=== PATIENT | female | born 1975 | race Caucasian/White ===

== ENCOUNTER 2016-11-21 19:30 | Emergency (ER) | payer OTHER ==
[~2016-11-21] VITALS: Ht 157.5 cm; Wt 79.4 kg
[~2016-11-21 19:30] MED LIST: AMOX TR-K CLV1 EAC1 PO; BACTRIM DS TAB1 EACH PO; BUSPIRONE HCL10 MG PO; BUSPIRONE HCL5 MG PO; CLONIDINE HCL0.1 MG; CORTISPORIN EAR10 ML AD; EFFEXOR XR150 MG PO; HYDROXYZINE PAM50 MG PO; LAMICTAL100 MG PO; LAMOTRIGINE200 MG PO; LEVAQUIN500 MG PO; LORAZEPAM1 MG PO; MECLIZINE HCL25 MG PO; METFORMIN HCL500 MG PO; METRONIDAZOLE500 MG PO; MUPIROCIN22 GM TOP; OXYCODONE HCL5 MG PO; PROVERA10 MG PO; ULTRAM50 MG PO; VENLAFAXINE HC225 MG PO; VICOPROFEN 2001 EACH PO; VISTARIL25 MG PO; ZOFRAN4 MG PO; ZOLPIDEM TARTRAT5 MG PO
[2016-11-21] MEDS ORDERED: AMITRIPTYLINE H25 MG PO (19:44)
[2016-11-21] MEDS ORDERED: ZOFRAN ODT4 MG PO (21:12)
[2016-11-21] MEDS ORDERED: TRAMADOL HCL50 MG PO (21:12)
== END 2016-11-21 21:45 | disposition home or self-care (01) ==
LOC: ED 19:30
DX: K52.9 Noninfective gastroenteritis and colitis, unspecified (principal); R10.2 Pelvic and perineal pain; G89.29 Other chronic pain; E11.9 Type 2 diabetes mellitus without complications; F32.9 Major depressive disorder, single episode, unspecified; F17.200 Nicotine dependence, unspecified, uncomplicated; Z88.8 Allergy status to other drugs, medicaments and biological substances; Z98.51 Tubal ligation status; Z79.84 Long term (current) use of oral hypoglycemic drugs
CPT/HCPCS: 80053; 81001; 83690; 84703; 85025; 96361; 96374; 96375; 99283; J1885; J2405; J7030

== ENCOUNTER 2017-02-21 11:58 | Emergency (ER) | payer OTHER ==
[~2017-02-21] VITALS: Ht 157.5 cm; Wt 77.1 kg
[~2017-02-21 11:58] MED LIST changes: +AMITRIPTYLINE H25 MG PO; +TRAMADOL HCL50 MG PO; +ZOFRAN ODT4 MG PO
[2017-02-21] MEDS ORDERED: NORCO 5-325 TA1 EACH PO (20:15)
== END 2017-02-21 21:19 | disposition home or self-care (01) ==
LOC: ED 11:58
DX: K59.00 Constipation, unspecified (principal); F32.9 Major depressive disorder, single episode, unspecified; F17.200 Nicotine dependence, unspecified, uncomplicated; Z98.51 Tubal ligation status; Z87.01 Personal history of pneumonia (recurrent); Z79.899 Other long term (current) drug therapy; Z79.84 Long term (current) use of oral hypoglycemic drugs
CPT/HCPCS: 74177; 76705; 80053; 81001; 83690; 85025; 96374; 96375; 96376; 99284; J1170; J2405; J2550; Q9967

== ENCOUNTER 2017-10-14 21:58 | Emergency (ER) | payer OTHER ==
[~2017-10-14] VITALS: Ht 157.5 cm; Wt 77.1 kg
[~2017-10-14 21:58] MED LIST changes: +CLONIDINE HCL0.1 MG PO; +HYDROXYZINE HCL25 MG PO; +NORCO 5-325 TA1 EACH PO
[2017-10-14] MEDS ORDERED: HYDROXYZINE HCL50 MG (22:27)
[2017-10-14] MEDS ORDERED: RITALIN10 MG PO (22:29)
[2017-10-14] MEDS ORDERED: LUNESTA2 MG (22:29)
== END 2017-10-15 00:19 | disposition home or self-care (01) ==
LOC: ED 21:58
DX: R21 Rash and other nonspecific skin eruption (principal); R50.9 Fever, unspecified; E11.9 Type 2 diabetes mellitus without complications; F32.9 Major depressive disorder, single episode, unspecified; F17.200 Nicotine dependence, unspecified, uncomplicated; Z87.01 Personal history of pneumonia (recurrent); Z79.899 Other long term (current) drug therapy; Z79.4 Long term (current) use of insulin
CPT/HCPCS: 80053; 81001; 85025; 99283

== ENCOUNTER 2017-11-27 13:37 | Emergency (ER) | payer OTHER ==
[~2017-11-27] VITALS: Ht 157.5 cm; Wt 77.1 kg
[~2017-11-27 13:37] MED LIST changes: +HYDROXYZINE HCL50 MG; +LUNESTA2 MG; +RITALIN10 MG PO
[2017-11-27] MEDS ORDERED: REGLAN10 MG PO (16:34)
--- NOTE | 2017-11-27 22:12 | EKG ---
[facility] [address] [facility] [place] [address] Signed Normal sinus rhythm Left posterior fascicular block Cannot rule out Inferior infarct (cited on or before 27-NOV-2017) Abnormal ECG When compared with ECG of 27-NOV-2017 13:46, (Unconfirmed) No significant change was found Confirmed by RASHARD DUNN MD ([id number]) on 11/27/2017 10:12:08 PM Electronically Signed By: RASHARD DUNN MD 11/27/17 2212 PATIENT NAME: TERRA PERALTA Electrocardiogram DATE OF : 71 PHYSICIAN: RASHARD DUNN MD REPORT #: [id number] REPORT IS CONFIDENTIAL AND NOT TO BE RELEASED WITHOUT AUTHORIZATION
== END 2017-11-27 16:42 | disposition home or self-care (01) ==
LOC: ED 13:37
DX: R07.89 Other chest pain (principal); R51 Headache; E11.9 Type 2 diabetes mellitus without complications; F17.200 Nicotine dependence, unspecified, uncomplicated; Z88.6 Allergy status to analgesic agent; Z79.899 Other long term (current) drug therapy; Z79.84 Long term (current) use of oral hypoglycemic drugs
CPT/HCPCS: 71046; 80053; 84484; 85025; 93005; 93010; 99285

== ENCOUNTER 2018-08-14 16:59 | Emergency (ER) | payer OTHER ==
[~2018-08-14] VITALS: Ht 157.5 cm; Wt 72.6 kg
--- OUTSIDE RECORDS SUMMARY | ~2018-08-14 | XMS | Clinical Summary ---
Demographics + + + | Address | [address] | | | [place] [address] | + + + | Home Phone | | + + + | Preferred Language | Unknown | + + + | Marital Status | | + + + | Rastafarian Affiliation | Unknown | + + + | Race | Unknown | + + + | Ethnic Group | Unknown | + + + Author + + + | Author | [employer] | + + + | Organization | [employer] | + + + | Address | Unknown | + + + | Phone | Unavailable | + + + Support + + +---------+ + | Name | Relationship | Address | Phone | + + +---------+ + | Nino Delgado | ECON | Unknown | | + + +---------+ + Care Team Providers + +------+ + | Care Health Officer Name | Role | Phone | + +------+ + | Dr. Gera | PP | Unavailable | + +------+ + Allergies Not on File Current Medications Not on file Active Problems Not on file Social History + +-------+ +--------+------+ | Tobacco [...] on file | | + + + Plan of Treatment Not on file Results Not on filefrom Last 3 Months"
--- OUTSIDE RECORDS SUMMARY | ~2018-08-14 | XMS | Clinical Summary ---
Demographics + + + | Address | [address] | | | [place] [address] | + + + | Home Phone | | + + + | Preferred Language | Unknown | + + + | Marital Status | Unknown | + + + | Evangelical Affiliation | Unknown | + + + | Race | Unknown | + + + | Ethnic Group | Unknown | + + + Author + + + | Author | [facility] | | | and [place] | + + + | Organization | [facility] | | | and [place] | + + + | Address | Unknown | + + + | Phone | Unavailable | + + + Care Team Providers + +------+ + | Care Grain Mixer Name | Role | Phone | + +------+ + PP | Unavailable | + +------+ + [...] recent travel history available. | + + Plan of Treatment + + + + [...] Vaccine: Influenza | | | | | (Season Ended) | 9 | | | + + + + + Results Not on filefrom Last 3 Months"
--- OUTSIDE RECORDS SUMMARY | ~2018-08-14 | XMS | Clinical Summary ---
Demographics + + + | Address | [address] | | | [place] [address] | + + + | Home Phone | | + + + | Preferred Language | Unknown | + + + | Marital Status | Unknown | + + + | Oriental Orthodox Affiliation | Unknown | + + + [...] Team Providers + +------+ + | Care Adult Literacy Instructor Name | Role | Phone | + [...]
--- OUTSIDE RECORDS SUMMARY | ~2018-08-14 | XMS | Clinical Summary ---
Demographics + + + | Address | [address] | | | [place] [address] | + + + | Home Phone | | + + + | Preferred Language | Unknown | + + + | Marital Status | | + + + | Faith Affiliation | Unknown | + + + | Race | Unknown | + + + | Ethnic Group | Unknown | + + + Author + + + | Author | [facility] [employer] [facility] | + + + | Organization | [facility] | + + + | Address | Unknown | + + + | Phone | Unavailable | + + + Support + + +---------+ + | Name | Relationship | Address | Phone | + + +---------+ + | Nino Delgado | ECON | Unknown | | + + +---------+ + Care Team Providers + +------+ + | Care Fondant Machine Operator Name | Role | Phone | + [...]
[~2018-08-14 16:59] MED LIST changes: +AMITRIPTYLINE100 MG PO; +CILOXAN5 ML OD; +ESZOPICLONE2 MG PO; +IBUPROFEN600 MG PO; +KETOROLAC TROME10 MG PO; +NEURONTIN300 MG PO; +ONDANSETRON ODT8 MG PO; +REGLAN10 MG PO; +RISPERIDONE0.25 MG PO
--- OUTSIDE RECORDS SUMMARY | 2018-08-14 17:02 | XMS ---
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 Details: LWBS CRITERIA MET - Group Notification - [facility] - Has Care Guidelines - PDMP CARE PROVIDERS MAYRA REDDY Hospitalist 02/20/2018-Current PHONE: Unknown Tracy has no Care Guidelines for this patient. Care History Medical/Surgical 02/20/2018 [facility] - Patient is currently established with [facility]. If patient is seen in the ED during business hours. Please contact CHWs at [facility]. Care Recommendation: This patient has had 5 or more Emergency Department visits in the last 12 months.\T\nbsp; Patient requires education on the scope and purpose of the ED as an acute care provider not a Primary Care Provider and should not be utilized for chronic conditions.\T\nbsp; These are guidelines and the provider should exercise clinical judgment when providing care. E.D. VISIT COUNT (12 MO.) [address] [facility] TOTAL 6 NOTE: Visits indicate total known visits. 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 - penitentiary (current) use of oral hypoglycemic drugs - Type 2 diabetes mellitus without complications - Nicotine dependence, unspecified, uncomplicated - Major depressive disorder, single episode, unspecified - Allergy status to other drugs, medicaments and biological substances status - Headache 02/19/2018 17:47 [facility] [place] TYPE: Emergency COMPLAINT: - BLOODY NOSE DIAGNOSES: - Major depressive disorder, single episode, unspecified - 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 - Other tank terminal gauger (current) drug therapy - Allergy status to other drugs, medicaments and biological substances status - Type 2 diabetes mellitus without complications - Personal history of pneumonia (recurrent) - Nausea - Personal history of nicotine dependence - Epistaxis - Postprocedural hemorrhage of a respiratory system organ or structure following a respiratory system procedure 02/07/2018 15:15 [facility] [place] TYPE: Emergency COMPLAINT: - EYE PAIN DIAGNOSES: - Type 2 diabetes mellitus without complications - Injury of conjunctiva and corneal abrasion without foreign body, left eye, initial encounter - Other tank terminal gauger (current) drug therapy - Major depressive disorder, single episode, unspecified - Nicotine dependence, unspecified, uncomplicated - penitentiary (current) use of oral hypoglycemic drugs - Visual discomfort, left eye - Allergy status to other drugs, medicaments and biological substances status - Personal history of pneumonia (recurrent) - Striking against or struck by other objects, initial encounter 11/27/2017 13:38 [facility] [place] TYPE: Emergency COMPLAINT: - CHEST PAIN DIAGNOSES: - Nicotine dependence, unspecified, uncomplicated - 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 - Type 2 diabetes mellitus without complications - Headache - 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 - Other chest pain - Allergy status to analgesic agent status - Precordial pain - Other tank terminal gauger (current) drug therapy 10/14/2017 21:59 [facility] [place] TYPE: Emergency COMPLAINT: - FEVER,BODY RASH DIAGNOSES: - Fever, unspecified - Other retirement (current) drug therapy - Rash and other nonspecific skin eruption - Type 2 diabetes mellitus without complications - Personal history of pneumonia (recurrent) - Nicotine dependence, unspecified, uncomplicated - Major depressive disorder, single episode, unspecified - 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
[2018-08-14] MEDS ORDERED: STRATTERA80 MG PO (17:41)
== END 2018-08-14 18:20 | disposition home or self-care (01) ==
LOC: ED 16:59
DX: S00.86XA Insect bite (nonvenomous) of other part of head, initial encounter (principal); E11.9 Type 2 diabetes mellitus without complications; F32.9 Major depressive disorder, single episode, unspecified; Z87.01 Personal history of pneumonia (recurrent); F17.200 Nicotine dependence, unspecified, uncomplicated; Z88.6 Allergy status to analgesic agent; W57.XXXA Bitten or stung by nonvenomous insect and other nonvenomous arthropods, initial encounter
CPT/HCPCS: 99282

== ENCOUNTER 2019-03-18 13:10 | Emergency (ER) | payer OTHER ==
[~2019-03-18] VITALS: Ht 157.5 cm; Wt 72.6 kg
--- OUTSIDE RECORDS SUMMARY | ~2019-03-18 | XMS | Encounter Summary ---
Demographics + + + | Address | [address] | | | [place] [address] | + + + | Home Phone | | + + + | Preferred Language | Unknown | + + + | Marital Status | Unknown | + + + | Mandaeism Affiliation | Unknown | + + + | Race | Unknown | + + + | Ethnic Group | Unknown | + + + Author + + + | Author | [facility] | | | and [place] | + + + | Organization | [facility] | | | and [place] | + + + | Address | Unknown | + + + | Phone | Unavailable | + + + Care Team Providers + +------+ + | Care Textile Bag Sewer Name | Role | Phone | + +------+ + PCP | Unavailable | + +------+ + Encounter Details +--------+ + + + + | Date | Type | Department | Care Team | Description | +--------+ + + + + | 12/20/ | Hospital | [facility] | Junaid Peacock MD | Subarachnoid Hem w/o | | 2006 | Encounter | [address] | [address] | Coma (HCC) | | | | [address] | [address] [place], | | | | | [place], [place] | [place] [address] | | | | | [address] | [phone] | | | | | [phone] | | | +--------+ + + + + Social History + +-------+ +--------+------+ | Tobacco Use | Types | Packs/Day | Years | Date | | | | | Used | | + +-------+ +--------+------+ | Never Assessed | | | | | + +-------+ +--------+------+ + + + | Sex Assigned at | Date Recorded | | | | + + + | Not on file | | + + + + + + + | Job Start Date | Occupation | Industry | + + + + | Not on file | Not on file | Not on file | + + + + + + + + | Travel History | Travel Start | Travel End | + + + + + + | No recent travel history available. | + + documented as of this encounter Plan of Treatment Not on filedocumented as of this encounter Visit Diagnoses + + | Diagnosis | + + | Subarachnoid hemorrhage following injury, without mention of open intracranial wound, | | no loss of consciousness | + + documented in this encounter"
--- OUTSIDE RECORDS SUMMARY | ~2019-03-18 | XMS | Encounter Summary ---
Demographics + + + | Address | [address] | | | [place] [address] | + + + | Home Phone | | + + + | Preferred Language | Unknown | + + + | Marital Status | Unknown | + + + | Rastafarian Affiliation | Unknown | + + + | Race | Unknown | + + + | Ethnic Group | Unknown | + + + Author + + + | Author | [facility] | | | and [place] | + + + | Organization | [facility] | | | and [place] | + + + | Address | Unknown | + + + | Phone | Unavailable | + + + Care Team Providers + +------+ + | Care Women'S Garment Fitter Name | Role | Phone | + +------+ + PCP | Unavailable | + +------+ + Encounter Details +--------+ + + + + | Date | Type | Department | Care Team | Description | +--------+ + + + + | 03/28/ | Hospital | [facility] | | | | 2002 | Encounter | MED CTR EMERGENCY | | | | | | CENTER [address] | | | | | | [place], [place] | | | | | | [address] | | | | | | [phone] | | | +--------+ + + + [...] filedocumented as of this encounter Visit Diagnoses Not on filedocumented in this encounter"
--- OUTSIDE RECORDS SUMMARY | ~2019-03-18 | XMS | Encounter Summary ---
Demographics + + + | Address | [address] | | | [place] [address] | + + + | Home Phone | | + + + | Preferred Language | Unknown | + + + | Marital Status | Unknown | + + + | Episcopal Affiliation | Unknown | + + + | Race | Unknown | + + + | Ethnic Group | Unknown | + + + Author + + + | Author | [facility] | | | and [place] | + + + | Organization | [facility] | | | and [place] | + + + | Address | Unknown | + + + | Phone | Unavailable | + + + Care Team Providers + +------+ + | Care Shovel Handle Assembler Name | Role | Phone | + +------+ + PCP | Unavailable | + +------+ + Encounter Details +--------+ + + + + | Date | Type | Department | Care Team | Description | +--------+ + + + + | 07/17/ | Hospital | [facility] | Moe Fong MD | | | 2005 | Encounter | MED CTR [place] | [address] [facility] | | | | | [facility] [address] | [place], [place] | | | | | [place], | [address] | | | | | [place] [address] | | | | | | [phone] | | | +--------+ + + + [...]
--- OUTSIDE RECORDS SUMMARY | ~2019-03-18 | XMS | Encounter Summary ---
Demographics + + + | Address | [address] | | | [place] [address] | + + + | Home Phone | | + + + | Preferred Language | Unknown | + + + | Marital Status | Unknown | + + + | Denominational Affiliation | Unknown | + + + | Race | Unknown | + + + | Ethnic Group | Unknown | + + + Author + + + | Author | [facility] | | | and [place] | + + + | Organization | [facility] | | | and [place] | + + + | Address | Unknown | + + + | Phone | Unavailable | + + + Care Team Providers + +------+ + | Care Perl Developer Name | Role | Phone | + +------+ + PCP | Unavailable | + +------+ + Encounter Details +--------+ + + + + | Date | Type | Department | Care Team | Description | +--------+ + + + + | 01/16/ | Hospital | [facility] | | | | 2001 | Encounter | MED CTR EMERGENCY | | | | | | CENTER [address] | | | | | | [place], [place] | | | | | | [address] | | | | | | [phone] | | | +--------+ + + + [...]
--- OUTSIDE RECORDS SUMMARY | ~2019-03-18 | XMS | Encounter Summary ---
Demographics + + + | Address | [address] | | | [place] [address] | + + + | Home Phone | | + + + | Preferred Language | Unknown | + + + | Marital Status | Unknown | + + + | Cheondoism Affiliation | Unknown | + + + | Race | Unknown | + + + | Ethnic Group | Unknown | + + + Author + + + | Author | [facility] | | | and [place] | + + + | Organization | [facility] | | | and [place] | + + + | Address | Unknown | + + + | Phone | Unavailable | + + + Care Team Providers + +------+ + | Care Data Sciences Director Name | Role | Phone | + +------+ + PCP | Unavailable | + +------+ + Encounter Details +--------+ + + + + | Date | Type | Department | Care Team | Description | +--------+ + + + + | 12/12/ | Hospital | [facility] | | | | 2008 | Encounter | MED CTR EMERGENCY | | | | | | CENTER [address] | | | | | | [place], [place] | | | | | | [address] | | | | | | [phone] | | | +--------+ + + + [...]
--- OUTSIDE RECORDS SUMMARY | ~2019-03-18 | XMS | Encounter Summary ---
Demographics + + + | Address | [address] | | | [place] [address] | + + + | Home Phone | | + + + | Preferred Language | Unknown | + + + | Marital Status | Unknown | + + + | Jew Affiliation | Unknown | + + + | Race | Unknown | + + + | Ethnic Group | Unknown | + + + Author + + + | Author | [facility] | | | and [place] | + + + | Organization | [facility] | | | and [place] | + + + | Address | Unknown | + + + | Phone | Unavailable | + + + Care Team Providers + +------+ + | Care Penciller Name | Role | Phone | + +------+ + PCP | Unavailable | + +------+ + Encounter Details +--------+ + + + + | Date | Type | Department | Care Team | Description | +--------+ + + + + | 07/17/ | Hospital | [facility] | Moe Fnog MD | | | 2005 | Encounter | MED CTR [place] | [address] [facility] | | | | | [facility] [address] | [place], [place] | | | | | [place], | [address] | | | | | [place] [address] | | | | | | [phone] | | | +--------+ + + + [...]
--- OUTSIDE RECORDS SUMMARY | ~2019-03-18 | XMS | Encounter Summary ---
Demographics + + + | Address | [address] | | | [place] [address] | + + + | Home Phone | | + + + | Preferred Language | Unknown | + + + | Marital Status | Unknown | + + + | Christian Affiliation | Unknown | + + + | Race | Unknown | + + + | Ethnic Group | Unknown | + + + Author + + + | Author | [facility] | | | and [place] | + + + | Organization | [facility] | | | and [place] | + + + | Address | Unknown | + + + | Phone | Unavailable | + + + Care Team Providers + +------+ + | Care Pattern Carrier Name | Role | Phone | + +------+ + PCP | Unavailable | + +------+ + Encounter Details +--------+ + + + + | Date | Type | Department | Care Team | Description | +--------+ + + + + | 12/12/ | Hospital | [facility] | | | | 2008 | Encounter | MED CTR EMERGENCY | | | | | | CENTER [address] | | | | | | [place], [place] | | | | | | [address] | | | | | | [phone] | | | +--------+ + + + [...]
--- OUTSIDE RECORDS SUMMARY | ~2019-03-18 | XMS | Encounter Summary ---
Demographics + + + | Address | [address] | | | [place] [address] | + + + | Home Phone | | + + + | Preferred Language | Unknown | + + + | Marital Status | Unknown | + + + | Christian Affiliation | Unknown | + + + | Race | Unknown | + + + | Ethnic Group | Unknown | + + + Author + + + | Author | [facility] | | | and [place] | + + + | Organization | [facility] | | | and [place] | + + + | Address | Unknown | + + + | Phone | Unavailable | + + + Care Team Providers + +------+ + | Care Egg Processor Name | Role | Phone | + +------+ + PCP | Unavailable | + +------+ + Encounter Details +--------+ + + + + | Date | Type | Department | Care Team | Description | +--------+ + + + + | 03/28/ | Hospital | [facility] | | | | 2002 | Encounter | MED CTR EMERGENCY | | | | | | CENTER [address] | | | | | | [place], [place] | | | | | | [address] | | | | | | [phone] | | | +--------+ + + + [...]
--- OUTSIDE RECORDS SUMMARY | ~2019-03-18 | XMS | Encounter Summary ---
Demographics + + + | Address | [address] | | | [place] [address] | + + + | Home Phone | | + + + | Preferred Language | Unknown | + + + | Marital Status | Unknown | + + + | Yazidism Affiliation | Unknown | + + + | Race | Unknown | + + + | Ethnic Group | Unknown | + + + Author + + + | Author | [facility] | | | and [place] | + + + | Organization | [facility] [place] | | | and [place] | + + + | Address | Unknown | + + + | Phone | Unavailable | + + + Care Team Providers + +------+ + | Care Coal Gasification Technician Name | Role | Phone | + +------+ + PCP | Unavailable | + +------+ + Encounter Details +--------+ + + + + | Date | Type | Department | Care Team | Description | +--------+ + + + + | 01/12/ | Hospital | [facility] | | | | 2001 | Encounter | MED CTR EMERGENCY | | | | | | CENTER [address] | | | | | | [place], [place] | | | | | | [address] | | | | | | [phone] | | | +--------+ + + + [...]
--- OUTSIDE RECORDS SUMMARY | ~2019-03-18 | XMS | Encounter Summary ---
Demographics + + + | Address | [address] | | | [place] [address] | + + + | Home Phone | | + + + | Preferred Language | Unknown | + + + | Marital Status | Unknown | + + + | Jainism Affiliation | Unknown | + + + | Race | Unknown | + + + | Ethnic Group | Unknown | + + + Author + + + | Author | [facility] | | | and [place] | + + + | Organization | [facility] [place] | | | and [place] | + + + | Address | Unknown | + + + | Phone | Unavailable | + + + Care Team Providers + +------+ + | Care Employee Benefits Attorney Name | Role | Phone | + +------+ + PCP | Unavailable | + +------+ + Encounter Details +--------+ + + + + | Date | Type | Department | Care Team | Description | +--------+ + + + + | 12/20/ | Hospital | [facility] | Junaid Peacock MD | Subarachnoid Hem w/o | | 2006 | Encounter | CONVERSION [address] | [address] | Coma (HCC) | | | | [address] | [address], | | | | | [place], [place] | [place] [address] | | | | | [address] | [phone] | | | | | [phone] | | | +--------+ + + + [...]
--- OUTSIDE RECORDS SUMMARY | ~2019-03-18 | XMS | Encounter Summary ---
Demographics + + + | Address | [address] | | | [place] [address] | + + + | Home Phone | | + + + | Preferred Language | Unknown | + + + | Marital Status | Unknown | + + + | Protestant Affiliation | Unknown | + + + | Race | Unknown | + + + | Ethnic Group | Unknown | + + + Author + + + | Author | [facility] | | | and [place] | + + + | Organization | [facility] | | | and [place] | + + + | Address | Unknown | + + + | Phone | Unavailable | + + + Care Team Providers + +------+ + | Care Functional Tester Name | Role | Phone | + +------+ + PCP | Unavailable | + +------+ + Encounter Details +--------+ + + + + | Date | Type | Department | Care Team | Description | +--------+ + + + + | 12/28/ | Hospital | [facility] | [place], | | | 2008 - | Encounter | MED CTR ICU [address] | MD [address] | | | | | [place], | [place] | | | 12/30/ | | [place] [address] | [address] | | | 2008 | | [phone] | | | +--------+ + + + [...]
--- OUTSIDE RECORDS SUMMARY | ~2019-03-18 | XMS | Clinical Summary ---
Demographics + + + | Address | [address] | | | [place] [address] | + + + | Home Phone | | + + + | Preferred Language | Unknown | + + + | Marital Status | | + + + | Sikh Affiliation | Unknown | + + + | Race | Unknown | + + + | Ethnic Group | Unknown | + + + Author + + + | Author | [facility] (Historical as of | | | 12-08-18) | + + + | Organization | [facility] (Historical as of | | | 12-08-18) | + + + | Address | Unknown | + + + | Phone | Unavailable | + + + Support + + +---------+ + | Name | Relationship | Address | Phone | + + +---------+ + | Nino Delgado | ECON | Unknown | | + + +---------+ + Care Team Providers + +------+ + | Care Footwear Sales Leader Name | Role | Phone | + [...]
--- OUTSIDE RECORDS SUMMARY | ~2019-03-18 | XMS | Encounter Summary ---
Demographics + + + | Address | [address] | | | [place] [address] | + + + | Home Phone | | + + + | Preferred Language | Unknown | + + + | Marital Status | Unknown | + + + | Voodoo Affiliation | Unknown | + + + | Race | Unknown | + + + | Ethnic Group | Unknown | + + + Author + + + | Author | [facility] | | | and [place] | + + + | Organization | [facility] | | | and [place] | + + + | Address | Unknown | + + + | Phone | Unavailable | + + + Care Team Providers + +------+ + | Care Booster Pump Oiler Name | Role | Phone | + +------+ + PCP | Unavailable | + +------+ + Encounter Details +--------+ + + + + | Date | Type | Department | Care Team | Description | +--------+ + + + + | 10/30/ | Hospital | [facility] | | | | 2008 | Encounter | MED CTR EMERG[facility]Y | | | | | | CENTER [address] | | | | | | [place], [place] | | | | | | [address] | | | | | | [phone] | | | +--------+ + + + [...]
--- OUTSIDE RECORDS SUMMARY | ~2019-03-18 | XMS | Encounter Summary ---
Demographics + + + | Address | [address] | | | [place] [address] | + + + | Home Phone | | + + + | Preferred Language | Unknown | + + + | Marital Status | Unknown | + + + | Quaker Affiliation | Unknown | + + + | Race | Unknown | + + + | Ethnic Group | Unknown | + + + Author + + + | Author | [facility] | | | and [place] | + + + | Organization | [facility] | | | and [place] | + + + | Address | Unknown | + + + | Phone | Unavailable | + + + Care Team Providers + +------+ + | Care Integrated Logistics Support Manager Name | Role | Phone | + +------+ + PCP | Unavailable | + +------+ + Encounter Details +--------+ + + + + | Date | Type | Department | Care Team | Description | +--------+ + + + + | 01/16/ | Hospital | [facility] | | | | 2001 | Encounter | MED CTR EMERGENCY | | | | | | CENTER [address] | | | | | | [place], [place] | | | | | | [address] | | | | | | [phone] | | | +--------+ + + + [...]
--- OUTSIDE RECORDS SUMMARY | ~2019-03-18 | XMS | Encounter Summary ---
Demographics + + + | Address | [address] | | | [place] [address] | + + + | Home Phone | | + + + | Preferred Language | Unknown | + + + | Marital Status | Unknown | + + + | Pentecostal Affiliation | Unknown | + + + | Race | Unknown | + + + | Ethnic Group | Unknown | + + + Author + + + | Author | [facility] | | | and [place] | + + + | Organization | [facility] | | | and [place] | + + + | Address | Unknown | + + + | Phone | Unavailable | + + + Care Team Providers + +------+ + | Care Skilled Labor Name | Role | Phone | + +------+ + PCP | Unavailable | + +------+ + Encounter Details +--------+ + + + + | Date | Type | Department | Care Team | Description | +--------+ + + + + | 12/04/ | Hospital | [facility] | Junaid Peacock MD | Subarachnoid Hem w/o | | 2006 - | Encounter | [facility] [address] | [address] | Coma (HCC) | | | | [address] | [address] [place], | | | 12/07/ | | [place], [place] | [place] [address] | | | 2006 | | [address] | [phone] | | | | | [phone] | | | +--------+ + + + [...]
--- OUTSIDE RECORDS SUMMARY | ~2019-03-18 | XMS | Clinical Summary ---
Demographics + + + | Address | [address] | | | [place] [address] | + + + | Home Phone | | + + + | Preferred Language | Unknown | + + + | Marital Status | Unknown | + + + | Protestant Affiliation | Unknown | + + + | Race | Unknown | + + + | Ethnic Group | Unknown | + + + Author + + + | Author | [facility] | | | and [place] | + + + | Organization | [facility] | | | and [place] | + + + | Address | Unknown | + + + | Phone | Unavailable | + + + Care Team Providers + +------+ + | Care News Reporter Name | Role | Phone | + +------+ + PCP | Unavailable | + +------+ + Allergies Not on File Medications Not on file Active Problems Not [...] recent travel history available. | + + Last Filed Vital Signs Not on file Plan of Treatment + + + + + | Health Maintenance | Due Date | Last Done | Comments | + + + + + | Vaccine: | | | | | Dtap/Tdap/Td (1 - | 3 | | | | Tdap) | | | | + + + + + | Cervical Cancer | | | | | Screening (Pap) | 4 | | | + + + + + | Breast Cancer | | | | | Screening | 9 | | | + + + + + | Vaccine: Influenza | | | | | (#1) | 9 | | | + + + + + Results Not on filefrom Last 3 Months"
--- OUTSIDE RECORDS SUMMARY | ~2019-03-18 | XMS | Encounter Summary ---
Demographics + + + | Address | [address] | | | [place] [address] | + + + | Home Phone | | + + + | Preferred Language | Unknown | + + + | Marital Status | Unknown | + + + | Mu-Ism Affiliation | Unknown | + + + | Race | Unknown | + + + | Ethnic Group | Unknown | + + + Author + + + | Author | [facility] | | | and [place] | + + + | Organization | [facility] | | | and [place] | + + + | Address | Unknown | + + + | Phone | Unavailable | + + + Care Team Providers + +------+ + | Care Alarm Investigator Name | Role | Phone | + +------+ + PCP | Unavailable | + +------+ + Encounter Details +--------+ + + + + | Date | Type | Department | Care Team | Description | +--------+ + + + + | 01/12/ | Hospital | [facility] | | | | 2001 | Encounter | MED CTR EMERGENCY | | | | | | CENTER [address] | | | | | | [place], [place] | | | | | | [address] | | | | | | [phone] | | | +--------+ + + + [...]
--- OUTSIDE RECORDS SUMMARY | ~2019-03-18 | XMS | Clinical Summary ---
Demographics + + + | Address | [address] | | | [place] [address] | + + + | Home Phone | | + + + | Preferred Language | Unknown | + + + | Marital Status | Unknown | + + + | Judaism Affiliation | Unknown | + + + | Race | Unknown | + + + | Ethnic Group | Unknown | + + + Author + + + | Author | [facility] | | | and [place] | + + + | Organization | [facility] | | | and [place] | + + + | Address | Unknown | + + + | Phone | Unavailable | + + + Care Team Providers + +------+ + | Care Observer Electrical Prospecting Name | Role | Phone | + [...]
--- OUTSIDE RECORDS SUMMARY | ~2019-03-18 | XMS | Encounter Summary ---
Demographics + + + | Address | [address] | | | [place] [address] | + + + | Home Phone | | + + + | Preferred Language | Unknown | + + + | Marital Status | Unknown | + + + | Jainism Affiliation | Unknown | + + + | Race | Unknown | + + + | Ethnic Group | Unknown | + + + Author + + + | Author | [facility] | | | and [place] | + + + | Organization | 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
--- OUTSIDE RECORDS SUMMARY | ~2019-03-18 | XMS | Encounter Summary ---
Demographics + + + | Address | [address] | | | [place] [address] | + + + | Home Phone | | + + + | Preferred Language | Unknown | + + + | Marital Status | Unknown | + + + | Jehovah'S Witness Affiliation | Unknown | + + + | Race | Unknown | + + + | Ethnic Group | Unknown | + + + Author + + + | Author | [facility] | | | and [place] | + + + | Organization | [facility] | | | and [place] | + + + | Address | Unknown | + + + | Phone | Unavailable | + + + Care Team Providers + +------+ + | Care Ad Copy Writer Name | Role | Phone | + +------+ + PCP | Unavailable | + +------+ + Encounter Details +--------+ + + + + | Date | Type | Department | Care Team | Description | +--------+ + + + + | 12/28/ | Hospital | [facility] | Israel [place], | | | 2008 - | Encounter | MED CTR ICU [address] | MD [address] | | | | | [place], | [place] | | | 12/30/ | | [place] [address] | [address] | | | 2008 | | [phone] | | | +--------+ + + + [...]
--- OUTSIDE RECORDS SUMMARY | ~2019-03-18 | XMS | Clinical Summary ---
Demographics + + + | Address | [address] | | | [place] [address] | + + + | Home Phone | | + + + | Preferred Language | Unknown | + + + | Marital Status | | + + + | Moravian Affiliation | Unknown | + + + | Race | Unknown | + + + | Ethnic Group | Unknown | + + + Author + + + | Author | [facility] (Historical as of | | | 12-08-18) | + + + | Organization | [facility] (Historical as of | | | 12-08-18) [...] Team Providers + +------+ + | Care Shipping And Receiving Material Handler Name | Role | Phone | + [...]
--- OUTSIDE RECORDS SUMMARY | ~2019-03-18 | XMS | Encounter Summary ---
Demographics + + + | Address | [address] | | | [place] [address] | + + + | Home Phone | | + + + | Preferred Language | Unknown | + + + | Marital Status | Unknown | + + + | Hindu Affiliation | Unknown | + + + | Race | Unknown | + + + | Ethnic Group | Unknown | + + + Author + + + | Author | [facility] | | | and [place] | + + + | Organization | [facility] | | | and [place] | + + + | Address | Unknown | + + + | Phone | Unavailable | + + + Care Team Providers + +------+ + | Care Library Circulation Assistant Name | Role | Phone | + +------+ + PCP | Unavailable | + +------+ + Encounter Details +--------+ + + + + | Date | Type | Department | Care Team | Description | +--------+ + + + + | 10/30/ | Hospital | [facility] | | | | 2008 | Encounter | MED CTR EMERGENCY | | | | | | CENTER [address] | | | | | | [place], [place] | | | | | | [address] | | | | | | [phone] | | | +--------+ + + + [...]
[~2019-03-18 13:10] MED LIST changes: +PERPHENAZINE2 MG PO; +STRATTERA80 MG PO
--- OUTSIDE RECORDS SUMMARY | 2019-03-18 13:12 | XMS ---
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 Care History Medical/Surgical 02/20/2018 [facility] - Patient is currently established with [facility]. If patient is seen in the ED during business hours. Please contact CHWs at [facility]. Care Recommendation: This patient has had 5 [...] providing care. E.D. VISIT COUNT (12 MO.) 4 [facility] TOTAL 4 NOTE: Visits indicate total known visits. ED/UCC VISIT TRACKING (12 MO.) 03/18/2019 13:10 [facility] [place] TYPE: Emergency COMPLAINT: - POSSIBLE CONCUSSION 08/24/2018 19:54 [facility] [place] TYPE: Emergency COMPLAINT: - ACCIDENTAL OD DIAGNOSES: - Poisn by slctv seroton/norepineph reup inhibtr, acc, init - Nicotine dependence, unspecified, uncomplicated - 1 Type 2 diabetes mellitus without complications - Allergy status to analgesic agent status - Attention-deficit hyperactivity disorder, unspecified type - [facility] (current) use of oral hypoglycemic drugs - Major depressive disorder, single episode, unspecified - Other snf (current) drug therapy - Personal history of pneumonia (recurrent) - Nausea with vomiting, unspecified 08/14/2018 16:59 [facility] [place] TYPE: Emergency COMPLAINT: - POSS SPIDER BITE/FACIAL TINGLING DIAGNOSES: - Insect bite (nonvenomous) of other part of head, init encntr - 1 Type 2 diabetes mellitus without complications - Bit/stung by nonvenom insect \T\ oth nonvenom arthropods, init - Allergy status to analgesic agent status - Nicotine dependence, unspecified, uncomplicated - Major depressive disorder, single episode, unspecified - Personal history of pneumonia (recurrent) 04/10/2018 15:40 [facility] [place] TYPE: Emergency COMPLAINT: - HEAD PAIN,NAUSEA DIAGNOSES: - Personal history of pneumonia (recurrent) - Other snf (current) drug therapy - 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
[2019-03-18] MEDS ORDERED: MECLIZINE HCL25 MG PO (13:31)
== END 2019-03-18 13:48 | disposition home or self-care (01) ==
LOC: ED 13:10
DX: S06.0X9A Concussion with loss of consciousness of unspecified duration, initial encounter (principal); W22.8XXA Striking against or struck by other objects, initial encounter; E11.9 Type 2 diabetes mellitus without complications; F32.9 Major depressive disorder, single episode, unspecified; Z87.01 Personal history of pneumonia (recurrent); F90.9 Attention-deficit hyperactivity disorder, unspecified type; Z88.8 Allergy status to other drugs, medicaments and biological substances; Z79.899 Other long term (current) drug therapy; Z79.84 Long term (current) use of oral hypoglycemic drugs
CPT/HCPCS: 99283

== ENCOUNTER 2021-06-16 02:11 | Emergency (ER) | payer OTHER ==
[~2021-06-16] VITALS: Ht 157.5 cm; Wt 72.6 kg
--- OUTSIDE RECORDS SUMMARY | 2021-06-16 02:18 | XMS ---
PreManage Notification: TERRA PERALTA Security Extractor Plant Operator Events No recent Security Events currently on file CRITERIA MET - Group Notification CARE PROVIDERS LYLY REDDYLM Internal Medicine 02/20/2018-Current PHONE: Unknown Care Guidelines exist for the following facilities: [facility] ( 06/08/2020 ) Care History Medical/Surgical 03/19/2019 [facility] Patient tried walk in clinic on 03/18/2019, but the wait was too long and her symptoms felt they were getting worse.\T\nbsp; She will schedule a follow up with PCP Dr. Reddy. 02/20/2018 [facility] - Patient is currently established with [facility]. If patient is seen in the ED during business hours. Please contact CHWs at [facility]. Care Recommendation: This patient has had 5 or more Emergency Department visits in the last 12 months.\T\nbsp; Patient requires education on the scope and purpose of the ED as an acute care provider not a Primary Care Provider and should not be utilized for chronic conditions.\T\nbsp; These are guidelines and the provider should exercise clinical judgment when providing care. Daniel VISIT COUNT (12 MO.) 1 [facility] 4 [place] 1 [facility] TOTAL 6 NOTE: Visits indicate total known visits. ED/UCC VISIT TRACKING (12 MO.) 06/16/2021 02:12 [facility] [place] TYPE: Emergency COMPLAINT: - MENTAL HEALTH ISSUE 01/29/2021 11:45 [facility] [place] TYPE: Psychiatric Emergency DIAGNOSES: - Unspecified mood [affective] disorder - Prescription 12/18/2020 09:33 [facility] [place] TYPE: Psychiatric Emergency DIAGNOSES: - med req - Delusional disorders 12/17/2020 15:47 [facility] [place] TYPE: Psychiatric Emergency COMPLAINT: - med req DIAGNOSES: - med req 11/12/2020 12:39 [facility] [place] TYPE: Psychiatric Emergency DIAGNOSES: - Unspecified psychosis not due to a substance or known physiological condition - EVAL 11/10/2020 12:15 [facility] TYPE: Emergency DIAGNOSES: 06190. l rib pain 46381. Unspecified injury of head, initial encounter . Major depressive disorder, single episode, unspecified INPATIENT VISIT TRACKING (12 MO.) No inpatient visits to display in this time frame [email or web address]
== END 2021-06-16 14:32 | disposition home or self-care (01) ==
LOC: ED 02:11
DX: F31.9 Bipolar disorder, unspecified (principal); Z72.820 Sleep deprivation; E11.9 Type 2 diabetes mellitus without complications; Z88.6 Allergy status to analgesic agent; Z79.899 Other long term (current) drug therapy; Z79.84 Long term (current) use of oral hypoglycemic drugs
CPT/HCPCS: 96372; 99284; J1630; J2060

== ENCOUNTER 2021-10-03 07:05 | Emergency (ER) | payer OTHER ==
[~2021-10-03] VITALS: Ht 157.5 cm; Wt 72.6 kg
--- OUTSIDE RECORDS SUMMARY | 2021-10-03 07:14 | XMS ---
PreManage Notification: TERRA PERALTA Security Centralized Traffic Control Operator Events No recent Security Events currently on file CRITERIA MET - Group Notification CARE PROVIDERS LYLY REDDYLM Internal Medicine 02/20/2018-Current PHONE: Unknown Care Guidelines exist for the following facilities: [facility] ( 06/08/2020 ) Care History Medical/Surgical 03/19/2019 [facility] Patient tried walk in clinic on 03/18/2019, but the wait was too long and her symptoms felt they were getting worse.\T\nbsp; She will schedule a follow up with PCP Dr. Reddy. 02/20/2018 [facility] - Patient is currently established with [facility]. If patient is seen in the ED during business hours. Please contact CHWs at [facility]. Care Recommendation: This patient has had [...] care. Daniel VISIT COUNT (12 MO.) 1 [facility] 4 [place] 2 NATE Gonzalez TOTAL 7 NOTE: Visits indicate total known visits. ED/UCC VISIT TRACKING (12 MO.) 10/03/2021 07:06 [facility] [place] TYPE: Emergency COMPLAINT: - PANIC ATTACK 06/16/2021 02:[address] 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 TYPE: Psychiatric Emergency DIAGNOSES: - Unspecified psychosis not due to a substance or known physiological condition - EVAL 11/10/2020 12:15 [facility] TYPE: Emergency DIAGNOSES: 59762. l rib pain . Unspecified injury of head, initial encounter . Major depressive disorder, single episode, unspecified INPATIENT VISIT TRACKING (12 MO.) No inpatient visits to display in this time frame [id number]
[2021-10-03] MEDS ORDERED: VENLAFAXINE HC150 MG PO (07:36)
[2021-10-03] MEDS ORDERED: QUETIAPINE FUMA25 MG PO (07:37)
[2021-10-03] MEDS ORDERED: METFORMIN HCL500 MG PO (09:38)
[2021-10-03] MEDS ORDERED: SEROQUEL25 MG PO (09:38)
[2021-10-06] MEDS ORDERED: ONDANSETRON ODT8 MG PO (00:37)
== END 2021-10-03 09:52 | disposition home or self-care (01) ==
LOC: ED 07:05
DX: F32.A Depression, unspecified (principal); R44.2 Other hallucinations; E11.9 Type 2 diabetes mellitus without complications; Z87.891 Personal history of nicotine dependence; Z88.6 Allergy status to analgesic agent; Z79.899 Other long term (current) drug therapy; Z79.84 Long term (current) use of oral hypoglycemic drugs
CPT/HCPCS: 36415; 80053; 81001; 84439; 84443; 84703; 85025; 99284; A9270; G0480

== ENCOUNTER 2021-10-06 20:23 | Emergency (ER) | payer OTHER ==
[~2021-10-06] VITALS: Ht 157.5 cm; Wt 72.6 kg
[~2021-10-06 20:23] MED LIST changes: +QUETIAPINE FUMA25 MG PO; +SEROQUEL25 MG PO; +VENLAFAXINE HC150 MG PO
--- OUTSIDE RECORDS SUMMARY | 2021-10-06 20:30 | XMS ---
PreManage Notification: TERRA PERALTA Security Tab Card Press Operator Events No recent Security Events currently on file CRITERIA MET - Group Notification - [facility] - 2 Visits in 30 Days CARE PROVIDERS LYLY REDDYLM Internal Medicine 02/20/2018-Current PHONE: Unknown Care Guidelines exist for the following facilities: [facility] ( 06/08/2020 ) Care History Medical/Surgical 03/19/2019 [facility] Patient tried walk in clinic on 03/18/2019, but the wait was too long and her symptoms felt they were getting worse.\T\nbsp; She will schedule a follow up with PCP Dr. Reddy. 02/20/2018 [facility] - Patient is currently established with [facility]. If patient is seen in the ED during business hours. Please contact CHWs at [facility]. Care Recommendation: This patient has had 5 or more Emergency Department visits in the last 12 months.\T\nbsp; Patient requires education on the scope and purpose of the ED as an acute care provider not a Primary Care Provider and should not be utilized for chronic conditions.\T\nbsp; These are guidelines and the provider should exercise clinical judgment when providing care. EJulito VISIT COUNT (12 MO.) 1 [facility] 4 [place] 4 NATE Gonzalez TOTAL 9 NOTE: Visits indicate total known visits. 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 - Suicidal ideations - Allergy status to analgesic agent - Personal history of nicotine dependence - Other hallucinations - Other custodial (current) drug therapy - Depression, unspecified 06/16/2021 02:12 [facility] [place] TYPE: Emergency COMPLAINT: - MENTAL HEALTH ISSUE DIAGNOSES: - Bipolar disorder, unspecified - Encounter for other administrative examinations - Type 2 diabetes mellitus without complications - Allergy status to analgesic agent - senior care (current) use of oral hypoglycemic drugs - Other long term care phlebotomist (current) drug therapy - Sleep deprivation 01/29/2021 11:45 [facility] [place] TYPE: Psychiatric Emergency DIAGNOSES: - Unspecified mood [affective] disorder - Prescription 12/18/2020 09:33 [facility] [place] TYPE: Psychiatric Emergency DIAGNOSES: - med req - Delusional disorders 12/17/2020 15:47 [facility] TYPE: Psychiatric Emergency COMPLAINT: - med req DIAGNOSES: - med req 11/12/2020 12:39 [facility] TYPE: Psychiatric Emergency DIAGNOSES: - Unspecified psychosis not due to a substance or known physiological condition - EVAL 11/10/2020 12:15 [facility] TYPE: Emergency DIAGNOSES: 53188. l rib pain . Unspecified injury of head, initial encounter . Major depressive disorder, single episode, unspecified INPATIENT VISIT TRACKING (12 MO.) No inpatient visits to display in this time frame [email or web address]
== END 2021-10-07 01:20 | disposition home or self-care (01) ==
LOC: ED 20:23
DX: F41.9 Anxiety disorder, unspecified (principal); E11.9 Type 2 diabetes mellitus without complications; Z87.891 Personal history of nicotine dependence; F90.9 Attention-deficit hyperactivity disorder, unspecified type; Z88.8 Allergy status to other drugs, medicaments and biological substances; Z88.5 Allergy status to narcotic agent; Z79.899 Other long term (current) drug therapy; Z79.84 Long term (current) use of oral hypoglycemic drugs
CPT/HCPCS: 99283; A9270

== ENCOUNTER 2022-05-12 13:39 | Emergency (ER) | payer OTHER ==
[~2022-05-12] VITALS: Ht 157.5 cm; Wt 73.9 kg
--- OUTSIDE RECORDS SUMMARY | 2022-05-12 13:48 | XMS ---
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 Reddy. 02/20/2018 [facility] - Patient is currently established with [facility]. If patient is seen in the ED during business hours. Please contact CHWs at [facility]. Care Recommendation: This patient has had [...] providing care. Daniel VISIT COUNT (12 MO.) 6 [facility] TOTAL 6 NOTE: Visits indicate total known visits. ED/UCC VISIT TRACKING (12 MO.) 05/12/2022 13:41 [facility] [place] TYPE: Emergency COMPLAINT: - UPPER FACIAL/EYES TO L SIDE FACE PAIN [facility] [place] [facility] COMPLAINT: - VOMITING, DIARRHEA DIAGNOSES: - Noninfective gastroenteritis and colitis, unspecified - Diarrhea, unspecified - Allergy status to narcotic agent - custodial (current) use of oral hypoglycemic drugs - Allergy status to analgesic agent - Type 2 diabetes mellitus without complications - Personal history of nicotine dependence 10/06/2021 20:24 [facility] [place] [facility] [place] TYPE: Emergency COMPLAINT: - ANXIETY ATTACK DIAGNOSES: - Allergy status to other drugs, medicaments and biological substances - Personal history of nicotine dependence - Allergy status to narcotic agent - Attention-deficit hyperactivity disorder, unspecified type - Type 2 diabetes mellitus without complications - custodial (current) use of oral hypoglycemic drugs - Other usp (current) drug therapy - Anxiety disorder, unspecified 10/05/2021 21:11 [facility] [place] [facility] [place] TYPE: Emergency COMPLAINT: - MEDICAL CLEARANCE DIAGNOSES: - Type 2 diabetes mellitus without complications - Other usp (current) drug therapy - Anxiety disorder, unspecified - Personal history of nicotine dependence - 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 - Allergy status to other drugs, medicaments and biological substances 10/03/2021 07:06 [facility] [place] TYPE: Emergency COMPLAINT: - PANIC ATTACK DIAGNOSES: - Type 2 diabetes mellitus without complications - Depression, unspecified - Other hallucinations - Allergy status to analgesic agent - 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 - Other intermediate teacher (current) drug therapy - Personal history of nicotine dependence - Suicidal ideations 06/16/2021 02:12 [facility] [place] TYPE: Emergency COMPLAINT: - MENTAL HEALTH ISSUE DIAGNOSES: - Bipolar disorder, unspecified - Other intermediate teacher (current) drug therapy - Allergy status to analgesic agent - Encounter for other administrative examinations - Sleep deprivation - 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
[2022-05-12] MEDS ORDERED: REXULTI0.5 MG PO (13:55)
[2022-05-12] MEDS ORDERED: LAMOTRIGINE100 MG PO (13:55)
[2022-05-12] MEDS ORDERED: VENLAFAXINE HCL75 M1 PO (13:56)
[2022-05-12] MEDS ORDERED: IBU600 MG PO (15:58)
[2022-05-12] MEDS ORDERED: REGLAN10 MG PO (15:58)
== END 2022-05-12 16:34 | disposition home or self-care (01) ==
LOC: ED 13:39
DX: R51.9 Headache, unspecified (principal); E11.9 Type 2 diabetes mellitus without complications; Z87.891 Personal history of nicotine dependence; Z88.6 Allergy status to analgesic agent; Z88.5 Allergy status to narcotic agent; Z79.899 Other long term (current) drug therapy; Z79.84 Long term (current) use of oral hypoglycemic drugs
CPT/HCPCS: 99283

== ENCOUNTER 2022-07-28 23:39 | Emergency (ER) | payer OTHER ==
[~2022-07-28] VITALS: Ht 157.5 cm; Wt 64.3 kg
[~2022-07-28 23:39] MED LIST changes: +IBU600 MG PO; +LAMOTRIGINE100 MG PO; +REXULTI0.5 MG PO; +VENLAFAXINE HCL75 M1 PO
--- OUTSIDE RECORDS SUMMARY | 2022-07-28 23:42 | XMS ---
PreManage Notification: TERRA PERALTA Security Archives Specialist Events No recent Security Events currently on file CRITERIA MET - Group Notification CARE PROVIDERS -, [place]- Dentist: Organ Fixer [facility] PHONE: [phone] MAYRA VASQUEZ Internal Medicine 02/20/2018-Current PHONE: Unknown Care Guidelines exist for the following facilities: [facility] ( 06/08/2020 ) Care History Medical/Surgical 03/19/2019 [facility] Patient tried walk in clinic on 03/18/2019, but the wait was too long and her symptoms felt they were getting worse.\T\nbsp; She will schedule a follow up with PCP Dr. Vasquez. 02/20/2018 [facility] - Patient [facility] currently established with [facility] [...] care. E.D. VISIT COUNT (12 MO.) 6 [facility]. TOTAL 6 NOTE: Visits indicate total known visits. ED/UCC VISIT TRACKING (12 MO.) [facility] COMPLAINT: - HEADACHE 05/12/2022 13:41 [facility] [place] TYPE: Emergency COMPLAINT: - UPPER FACIAL/EYES TO L SIDE FACE PAIN DIAGNOSES: - Headache, unspecified - Allergy status to narcotic agent - Allergy status to analgesic agent - Type 2 diabetes mellitus without complications - skilled nursing (current) use of oral hypoglycemic drugs - Other jail (current) drug therapy - Personal history of nicotine dependence 03/04/2022 16:40 [facility] [place] TYPE: Emergency COMPLAINT: - VOMITING, DIARRHEA DIAGNOSES: - skilled nursing (current) use of oral hypoglycemic drugs - Allergy status to analgesic agent - Type 2 diabetes mellitus without complications - Personal history of nicotine dependence - Noninfective gastroenteritis and colitis, unspecified - Diarrhea, unspecified - Allergy status to narcotic agent 10/06/2021 20:24 [facility] [place] TYPE: Emergency COMPLAINT: - ANXIETY ATTACK DIAGNOSES: - Type 2 diabetes mellitus without complications - 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 - Other jail (current) drug therapy - Anxiety disorder, unspecified - Allergy status to other drugs, medicaments and biological substances - Personal history of nicotine dependence - Allergy status to narcotic agent - Attention-deficit hyperactivity disorder, unspecified type 10/05/2021 21:11 [facility] [place] TYPE: Emergency COMPLAINT: - MEDICAL CLEARANCE DIAGNOSES: - Personal history of nicotine dependence - skilled nursing (current) use of oral hypoglycemic drugs - Allergy status to other drugs, medicaments and biological substances - Type 2 diabetes mellitus without complications - Other long term care administrator (current) drug therapy - Anxiety disorder, unspecified 10/03/2021 07:06 [facility] [place] TYPE: Emergency COMPLAINT: - PANIC ATTACK DIAGNOSES: - skilled nursing (current) use of oral hypoglycemic drugs - Other long term care administrator (current) drug therapy - Personal history of nicotine dependence - Suicidal ideations - Type 2 diabetes mellitus without complications - Depression, unspecified - Other hallucinations - Allergy status to analgesic agent INPATIENT VISIT TRACKING (12 MO.) No inpatient visits to display in this time frame [email or web address]
== END 2022-07-29 01:46 | disposition home or self-care (01) ==
LOC: ED 23:39
DX: S00.83XA Contusion of other part of head, initial encounter (principal); E11.9 Type 2 diabetes mellitus without complications; Z87.891 Personal history of nicotine dependence; Z88.8 Allergy status to other drugs, medicaments and biological substances; Z88.5 Allergy status to narcotic agent; Z79.899 Other long term (current) drug therapy
CPT/HCPCS: 70450; 70486; 72125; 99284-25

== ENCOUNTER 2022-11-05 14:29 | Emergency (ER) | payer OTHER ==
[~2022-11-05] VITALS: Ht 157.5 cm; Wt 64.3 kg
--- OUTSIDE RECORDS SUMMARY | ~2022-11-05 | XMS | Continuity of Care Document ---
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 | + + + + + +-------+ + + | | 2022-03-04 | [facility] | 3.8 | (missing) | (missing) | | (unavailable | 16:50 [facility] | | | | + + + +-------+ + + + + | Result panel 15 | + + + + + +-------+ + + | | 2022-03-04 | [facility] | 100 | (missing) | (missing) | | (unavailable | 16:50 [facility] | | | | + + + +-------+ + + + + | Result panel 16 | + + + + + +------+ + + | | 2022-03-04 | [facility] | 28 | (missing) | (missing) | | (unavailable | 16:50 [facility] | | | | + + + +------+ + + + + | Result panel 17 | + + + + + +--------+ + + | | 2022-03-04 | [facility] | 12.8 | (missing) | (missing) | | (unavailable | 16:50 [facility] | | | | + + + +--------+ + + + + | Result panel 18 | + + + + + +-------+---------+ + | | 2022-03-04 | [facility] | 8.7 | mg/dL | (missing) | | (unavailable | 16:50 [facility] | | | | + + + +-------+---------+ + + + | Result panel 19 | + + + + + +-------+ + + | | 2022-03-04 | [facility] | 7.9 | (missing) | (missing) | | (unavailable | 16:50 [facility] | | | | + + + +-------+ + + + + | Result panel 20 | + + + + + +-------+ + + | | 2022-03-04 | [facility] | 3.9 | (missing) | (missing) | | (unavailable | 16:50 [facility] | | | | + + + +-------+ + + + + | Result panel 21 | + + + + + +-------+ + + | | 2022-03-04 | [facility] | 4.0 | (missing) | (missing) | | (unavailable | 16:50 [facility] | | | | + + + +-------+ + + + + | Result panel 22 | + + + + + +--------+ + + | | 2022-03-04 | [facility] | 0.98 | (missing) | (missing) | | (unavailable | 16:50 [facility] | | | | + + + +--------+ + + + + | Result panel 23 | + + + + + +--------+ + + | | 2022-03-04 | [facility] | 14.0 | (missing) | (missing) | | (unavailable | 16:50 [facility] | | | | + + + +--------+ + + + + | Result panel 24 | + + + + + +-------+ + + | | 2022-03-04 | [facility] | 0.6 | (missing) | (missing) | | (unavailable | 16:50 [facility] | | | | + + + +-------+ + + + + | Result panel 25 | + + + + + +------+ + + | | 2022-03-04 | [facility] | 14 | (missing) | (missing) | | (unavailable | 16:50 [facility] | | | | + + + +------+ + + + + | Result panel 26 | + + + + + +------+ + + | | 2022-03-04 | [facility] | 35 | (missing) | (missing) | | (unavailable | 16:50 [facility] | | | | + + + +------+ + + + + | Result panel 27 | + + + + + +------+ + + | | 2022-03-04 | [facility] | 88 | (missing) | (missing) | | (unavailable | 16:50 [facility] | | | | + + + +------+ + + + + | Result panel 28 | + + + + + +------+ + + | | 2022-03-04 | [facility] | 75 | (missing) | (missing) | | (unavailable | 16:50 [facility] | | | | + + + +------+ + + + + | Result panel 29 | + + + + + + + + + | | 2022-03-04 | [facility] | NEGATIVE | (missing) | (missing) | | (unavailable | 16:50 [facility] | | | | + + + + + + + + + | Result panel 30 | + + + + + +--------+ + + | | 2022-03-04 | [facility] | 41.2 | (missing) | (missing) | | (unavailable | 16:50 [facility] | | | | + + + +--------+ + + + + | Result panel 31 | + + + + + +--------+ + + | | 2022-03-04 | [facility] | 90.8 | (missing) | (missing) | | (unavailable | 16:50 [facility] | | | | + + + +--------+ + + + + | Result panel 32 | + + + + + +--------+ + + | | 2022-03-04 | [facility] | 30.9 | (missing) | (missing) | | (unavailable | 16:50 | [facility] | | | | + + + +--------+ + + + + | Result panel 33 | + + + + + +--------+ + + | | 2022-03-04 | [facility] | 34.0 | (missing) | (missing) | | (unavailable | 16:50 [facility] | | | | + + + +--------+ + + + + | Result panel 34 | + + + + + +--------+ + + | | 2022-03-04 | [facility] | 14.2 | (missing) | (missing) | | (unavailable | 16:50 [facility] | | | | + + + +--------+ + + + + | Result panel 35 | + + + + + +-------+ + + | | 2022-03-04 | [facility] | 394 | (missing) | (missing) | | (unavailable | 16:50 [facility] | | | | + + + +-------+ + + + + | Serum or plasma alanine aminotransferase measurement (enzymatic activity/volume) | + + + + + +------+ + + | Serum or | 2022-03-04 | [facility] | 35 | (missing) | (missing) | | plasma | 16:50 | [facility] | | | | alanine | | Hospital | | | | | aminotransfe | | | | | | | rase | | | | | | | measurement | | | | | | | (enzymatic | | | | | | | activity/vol | | | | | | | ume) | | | | | | + + + +------+ + + + + | Serum or plasma albumin measurement (mass/volume) | + + + + + +-------+ + + | Serum or | 2022-03-04 | [facility] | 3.9 | (missing) | (missing) | | plasma | 16:50 | [facility] | | | | albumin | | [facility] | | | | | measurement | | | | | | | (mass/volume | | | | | | | ) | | | | | | + + + +-------+ + + + + | Serum or plasma albumin/globulin mass ratio | + + + + + +--------+ + + | Serum or | 2022-03-04 | [facility] | 0.98 | (missing) | (missing) | | plasma | 16:50 | [facility] | | | | albumin/glob | | [facility] | | | | | ulin mass | | | | | | | ratio | | | | | | + + + +--------+ + + + + | Serum or plasma calcium measurement (mass/volume) | + + + + + +-------+ + + | Serum or | 2022-03-04 | [facility] | 8.7 | (missing) | (missing) | | plasma | 16:50 | [facility] | | | | calcium | | [facility] | | | | | measurement | | | | | | | (mass/volume | | | | | | | ) | | | | | | + + + +-------+ + + + + | Serum or plasma anion gap 4 | + + + + + +--------+ + + | Serum or | 2022-03-04 | [facility] | 12.8 | (missing) | (missing) | | plasma anion | 16:50 | [facility] | | | | gap 4 | | [facility] | | | | + + + +--------+ + + + + | Serum or plasma aspartate aminotransferase measurement (enzymatic activity/volume) | + + + + + +------+ + + | Serum or | 2022-03-04 | [facility] | 14 | (missing) | (missing) | | plasma | 16:50 | [facility] | | | | aspartate | | Hospital | | | | | aminotransfe | | | | | | | rase | | | | | | | measurement | | | | | | | (enzymatic | | | | | | | activity/vol | | | | | | | ume) | | | | | | + + + +------+ + + + + | Serum or plasma total bilirubin measurement (mass/volume) | + + + + + +-------+ + + | Serum or | 2022-03-04 | [facility] | 0.6 | (missing) | (missing) | | plasma total | 16:50 | [facility] | | | | bilirubin | | [facility] | | | | | measurement | | | | | | | (mass/volume | | | | | | | ) | | | | | | + + + +-------+ + + + + | Serum or plasma carbon dioxide, total measurement (moles/volume) | + + + + + +------+ + + | Serum or | 2022-03-04 | [facility] | 28 | (missing) | (missing) | | plasma | 16:50 | [facility] | | | | carbon | | Hospital | | | | | dioxide, | | | | | | | total | | | | | | | measurement | | | | | | | (moles/volum | | | | | | | e) | | | | | | + + + +------+ + + + + | Serum or plasma chloride measurement (moles/volume) | + + + + + +-------+ + + | Serum or | 2022-03-04 | [facility] | 100 | (missing) | (missing) | | plasma | 16:50 | [facility] | | | | chloride | | Hospital | | | | | measurement | | | | | | | (moles/volum | | | | | | | e) | | | | | | + + + +-------+ + + + + | Automated erythrocyte distribution width | + + + + + +--------+ + + | Automated | 2022-03-04 | [facility] | 14.2 | (missing) | (missing) | | erythrocyte | 16:50 | [facility] | | | | distribution | | [facility] | | | | | width | | | | | | + + + +--------+ + + + + | Serum or plasma choriogonadotropin ( test) detection | + + + + + + + + + | Serum or | 2022-03-04 | [facility] | NEGATIVE | (missing) | (missing) | | plasma | 16:50 | [facility] | | | | choriogonado | | Hospital | | | | | tropin | | | | | | | ( | | | | | | | test) | | | | | | | detection | | | | | | + + + + + + + + + | Serum or plasma creatinine measurement (mass/volume) | + + + + + +--------+ + + | Serum or | 2022-03-04 | [facility] | 1.15 | (missing) | (missing) | | plasma | 16:50 | [facility] | | | | creatinine | | [facility] | | | | | measurement | | | | | | | (mass/volume | | | | | | | ) | | | | | | + + + +--------+ + + + + | Serum globulin measurement (mass/volume) | + + + + + +-------+ + + | Serum | 2022-03-04 | [facility] | 4.0 | (missing) | (missing) | | globulin | 16:50 | [facility] | | | | measurement | | [facility] | | | | | (mass/volume | | | | | | | ) | | | | | | + + + +-------+ + + + + | Serum or plasma glucose measurement (mass/volume) | + + + + + +-------+ + + | Serum or | 2022-03-04 | [facility] | 192 | (missing) | (missing) | | plasma | 16:50 | [facility] | | | | glucose | | Hospital | | | | | measurement | | | | | | | (mass/volume | | | | | | | ) | | | | | | + + + +-------+ + + + + | Serum or plasma potassium measurement (moles/volume) | + + + + + +-------+ + + | Serum or | 2022-03-04 | [facility] | 3.8 | (missing) | (missing) | | plasma | 16:50 | [facility] | | | | potassium | | [facility] | | | | | measurement | | | | | | | (moles/volum | | | | | | | e) | | | | | | + + + +-------+ + + + + | Serum or plasma protein measurement (mass/volume) | + + + + + +-------+ + + | Serum or | 2022-03-04 | [facility] | 7.9 | (missing) | (missing) | | plasma | 16:50 | [facility] | | | | protein | | [facility] | | | | | measurement | | | | | | | (mass/volume | | | | | | | ) | | | | | | + + + +-------+ + + + + | Serum or plasma sodium measurement (moles/volume) | + + + + + +-------+ + + | Serum or | 2022-03-04 | [facility] | 137 | (missing) | (missing) | | plasma | 16:50 | [facility] | | | | sodium | | [facility] | | | | | measurement | | | | | | | (moles/volum | | | | | | | e) | | | | | | + + + +-------+ + + + + | Serum or plasma lipase measurement (enzymatic activity/volume) | + + + + + +------+ + + | Serum or | 2022-03-04 | [facility] | 75 | (missing) | (missing) | | plasma | 16:50 | [facility] | | | | lipase | | Hospital | | | | | measurement | | | | | | | (enzymatic | | | | | | | activity/vol | | | | | | | ume) | | | | | | + + + +------+ + + + + | Serum or plasma urea nitrogen measurement (mass/volume) | + + + + + +-----+ + + | Serum or | 2022-03-04 | [facility] | 9 | (missing) | (missing) | | plasma urea | 16:50 | [facility] | | | | nitrogen | | [facility] | | | | | measurement | | | | | | | (mass/volume | | | | | | | ) | | | | | | + + + +-----+ + + + + | Serum or plasma urea nitrogen/creatinine mass ratio | + + + + + +--------+ + + | Serum or | 2022-03-04 | [facility] | 7.82 | (missing) | (missing) | | plasma urea | 16:50 | [facility] | | | | nitrogen/cre | | Hospital | | | | | atinine mass | | | | | | | ratio | | | | | | + + + +--------+ + + + + | Automated blood monocyte count as percentage of total leukocytes | + + + + + +-------+ + + | Automated | 2022-03-04 | [facility] | 5.3 | (missing) | (missing) | | blood | 16:50 | [facility] | | | | monocyte | | [facility] | | | | | count as | | | | | | | percentage | | | | | | | of total | | | | | | | leukocytes | | | | | | + + + +-------+ + + + + | Blood leukocytes automated count (number/volume) | + + + + + +-------+ + + | Blood | 2022-03-04 | [facility] | 8.9 | (missing) | (missing) | | leukocytes | 16:50 | [facility] | | | | automated | | [facility] | | | | | count | | | | | | | (number/volu | | | | | | | me) | | | | | | + + + +-------+ + + + + | Serum or plasma alkaline phosphatase measurement (enzymatic activity/volume) | + + + + + +------+ + + | Serum or | 2022-03-04 | [facility] | 88 | (missing) | (missing) | | plasma | 16:50 | [facility] | | | | alkaline | | [facility] | | | | | phosphatase | | | | | | | measurement | | | | | | | (enzymatic | | | | | | | activity/vol | | | | | | | ume) | | | | | | + + + +------+ + + + + | Automated blood basophil count as percentage of total leukocytes | + + + + + +-------+ + + | Automated | 2022-03-04 | [facility] | 0.5 | (missing) | (missing) | | blood | 16:50 | [facility] | | | | basophil | | [facility] | | | | | count as | | | | | | | percentage | | | | | | | of total | | | | | | | leukocytes | | | | | | + + + +-------+ + + + + | Automated blood eosinophil count as percentage of total leukocytes | + + + + + +-------+ + + | Automated | 2022-03-04 | [facility] | 1.9 | (missing) | (missing) | | blood | 16:50 | [facility] | | | | eosinophil | | Hospital | | | | | count as | | | | | | | percentage | | | | | | | of total | | | | | | | leukocytes | | | | | | + + + +-------+ + + + + | Blood hemoglobin measurement (mass/volume) | + + + + + +--------+ + + | Blood | 2022-03-04 | [facility] | 14.0 | (missing) | (missing) | | hemoglobin | 16:50 | [facility] | | | | measurement | | [facility] | | | | | (mass/volume | | | | | | | ) | | | | | | + + + +--------+ + + + + | Automated blood hematocrit | + + + + + +--------+ + + | Automated | 2022-03-04 | [facility] | 41.2 | (missing) | (missing) | | blood | 16:50 | [facility] | | | | hematocrit | | [facility] | | | | + + + +--------+ + + + + | Automated blood lymphocyte count as percentage ot total leukocytes | + + + + + +--------+ + + | Automated | 2022-03-04 | [facility] | 26.5 | (missing) | (missing) | | blood | 16:50 | [facility] | | | | lymphocyte | | Hospital | | | | | count as | | | | | | | percentage | | | | | | | ot total | | | | | | | leukocytes | | | | | | + + + +--------+ + + + + | Automated blood neutrophil count as percentage of total leukocytes | + + + + + +--------+ + + | Automated | 2022-03-04 | [facility] | 65.8 | (missing) | (missing) | | blood | 16:50 | [facility] | | | | neutrophil | | Hospital | | | | | count as | | | | | | | percentage | | | | | | | of total | | | | | | | leukocytes | | | | | | + + + +--------+ + + + + | Automated blood platelet count (count/volume) | + + + + + +-------+ + + | Automated | 2022-03-04 | [facility] | 394 | (missing) | (missing) | | blood | 16:50 | [facility] | | | | platelet | | [facility] | | | | | count | | | | | | | (count/volum | | | | | | | e) | | | | | | + + + +-------+ + + + + | Automated erythrocyte mean corpuscular hemoglobin (mass per erythrocyte) | + + + + + +--------+ + + | Automated | 2022-03-04 | [facility] | 30.9 | (missing) | (missing) | | erythrocyte | 16:50 | [facility] | | | | mean | | [facility] | | | | | corpuscular | | | | | | | hemoglobin | | | | | | | (mass per | | | | | | | erythrocyte) | | | | | | | | | | | | | + + + +--------+ + + + + | Automated erythrocyte mean corpuscular hemoglobin concentration measurement | | (mass/volume) | + + + + + +--------+ + + | Automated | 2022-03-04 | [facility] | 34.0 | (missing) | (missing) | | erythrocyte | 16:50 | [facility] | | | | mean | | Hospital | | | | | corpuscular | | | | | | | hemoglobin | | | | | | | concentratio | | | | | | | n | | | | | | | measurement | | | | | | | (mass/volume | | | | | | | ) | | | | | | + + + +--------+ + + + + | Automated erythrocyte mean corpuscular volume | + + + + + +--------+ + + | Automated | 2022-03-04 | [facility] | 90.8 | (missing) | (missing) | | erythrocyte | 16:50 | [facility] | | | | mean | | [facility] | | | | | corpuscular | | | | | | | volume | | | | | | + + + +--------+ + + + + | Blood erythrocytes automated count (number/volume) | + + + + + +--------+ + + | Blood | 2022-03-04 | [facility] | 4.54 | (missing) | (missing) | | erythrocytes | 16:50 | [facility] | | | | automated | | Hospital | | | | | count | | | | | | | (number/volu | | | | | | | me) | | | | | | + + + +--------+ + + + + | Glomerular filtration rate/1.73 sq M.predicted [Volume Rate/Area] inSerum, Plasma or | | Blood by Creatinine-based formula (CKD-EPI 2020) | + + + + + +------+ + + | Glomerular | 2022-03-04 | [facility] | 59 | (missing) | (missing) | | filtration | 16:50 | [facility] | | | | | rate/1.73 sq | | Hospital | | | | | M.predicted | | | | | | | [Volume | | | | | | | Rate/Area] | | | | | | | inSerum, | | | | | | | Plasma or | | | | | | | Blood by | | | | | | | Creatinine-b | | | | | | | ased formula | | | | | | | (CKD-EPI | | | | | | | 2020) | | | | | | + + + +------+ + + Social History + + + + | date | description | facility | + + + + | 2022-03-04 00:00 | Former smoker | [facility] | + + + + | 2022-05-12 00:00 | Former smoker | [facility] | + + + + | 2022-07-29 00:00 | Former smoker | [facility] | + + + + Vital Signs + + + +---------+ | date | measurement | value | units | + + + +---------+ | 2022-03-04 00:00 | BMI | 30.3 | kg/m2 | + + + +---------+ | 2022-03-04 00:00 | BP_diastolic | 60 | mmHg | + + + +---------+ | 2022-03-04 00:00 | BP_systolic | 99 | mmHg | + + + +---------+ | 2022-03-04 00:00 | heart_rate | 86 | /min | + + + +---------+ | 2022-03-04 00:00 | height_metric | 157.48 | cm | + + + +---------+ | 2022-03-04 00:00 | height_standard | 62 | in | + + + +---------+ | 2022-03-04 00:00 | o2_saturation | 95 | % | + + + +---------+ | 2022-03-04 00:00 | respiration_rate | 17 | /min | + + + +---------+ | 2022-03-04 00:00 | temperature_metric | 36.5 | C | | | | | | + + + +---------+ | 2022-03-04 00:00 | | 97.7 | F | | | temperature_standar | | | | | d | | | + + + +---------+ | 2022-03-04 00:00 | weight_metric | 75.1 | kg | + + + +---------+ | 2022-03-04 00:00 | weight_standard | 165.57 | lb | + + + +---------+ | 2022-05-12 00:00 | BMI | 29.8 | kg/m2 | + + + +---------+ | 2022-05-12 00:00 | BP_diastolic | 56 | mmHg | + + + +---------+ | 2022-05-12 00:00 | BP_systolic | 106 | mmHg | + + + +---------+ | 2022-05-12 00:00 | heart_rate | 70 | /min | + + + +---------+ | 2022-05-12 00:00 | height_metric | 157.48 | cm | + + + +---------+ | 2022-05-12 00:00 | height_standard | 62 | in | + + + +---------+ | 2022-05-12 00:00 | o2_saturation | 99 | % | + + + +---------+ | 2022-05-12 00:00 | respiration_rate | 16 | /min | + + + +---------+ | 2022-05-12 00:00 | temperature_metric | 36.67 | C | | | | | | + + + +---------+ | 2022-05-12 00:00 | | 98 | F | | | temperature_standar | | | | | d | | | + + + +---------+ | 2022-05-12 00:00 | weight_metric | 73.87 | kg | + + + +---------+ | 2022-05-12 00:00 | weight_standard | 162.86 | lb | + + + +---------+ | 2022-07-28 00:00 | BMI | 25.9 | kg/m2 | + + + +---------+ | 2022-07-28 00:00 | height_metric | 157.48 | cm | + + + +---------+ | 2022-07-28 00:00 | height_standard | 62 | in | + + + +---------+ | 2022-07-28 00:00 | weight_metric | 64.35 | kg | + + + +---------+ | 2022-07-28 00:00 | weight_standard | 141.86 | lb | + + + +---------+ | 2022-07-28 00:00 | weight_standard | 141.87 | lb | + + + +---------+ | 2022-07-29 00:00 | BP_diastolic | 73 | mmHg | + + + +---------+ | 2022-07-29 00:00 | BP_systolic | 105 | mmHg | + + + +---------+ | 2022-07-29 00:00 | heart_rate | 94 | /min | + + + +---------+ | 2022-07-29 00:00 | o2_saturation | 98 | % | + + + +---------+ | 2022-07-29 00:00 | respiration_rate | 20 | /min | + + + +---------+ | 2022-07-29 00:00 | temperature_metric | 36.89 | C | | | | | | + + + +---------+ | 2022-07-29 00:00 | | 98.4 | F | | | temperature_standar | | | | | d | | | + + + +---------+"
--- OUTSIDE RECORDS SUMMARY | 2022-11-05 14:36 | XMS ---
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 Vasquez. 02/20/2018 [facility] - Patient is currently established with [facility]. If patient is seen in the ED during business hours. Please contact CHWs at [facility]. Care Recommendation: This patient has had [...] care. E.D. VISIT COUNT (12 MO.) [address] [facility]. TOTAL 4 NOTE: Visits indicate total known visits. 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 [place] [facility] [place] TYPE: Emergency COMPLAINT: - VOMITING, DIARRHEA DIAGNOSES: - Allergy status to analgesic agent - Allergy status to narcotic agent - Diarrhea, unspecified - snf (current) use of oral hypoglycemic drugs - Noninfective gastroenteritis and colitis, unspecified - Personal history of nicotine dependence - Type 2 diabetes mellitus without complications INPATIENT VISIT TRACKING (12 MO.) No inpatient visits to display in this time frame [email or web address]
[2022-11-05] MEDS ORDERED: TRAMADOL HCL50 MG PO (17:24)
[2022-11-05 18:02] VITALS: BP 118/66
== END 2022-11-05 18:03 | disposition home or self-care (01) ==
LOC: ED 14:29
DX: S90.31XA Contusion of right foot, initial encounter (principal); E11.9 Type 2 diabetes mellitus without complications; W22.8XXA Striking against or struck by other objects, initial encounter; Z87.891 Personal history of nicotine dependence; Z88.5 Allergy status to narcotic agent; Z88.8 Allergy status to other drugs, medicaments and biological substances; Z79.899 Other long term (current) drug therapy
CPT/HCPCS: 73630; 90715; J1885; J7030

== ENCOUNTER 2023-07-19 23:17 | Emergency (ER) | payer OTHER ==
[~2023-07-19] VITALS: Ht 157.5 cm; Wt 63.0 kg
[2023-07-19 23:48] LABS: BASOPHILS 0.3 % (0-2); EOSINOPHILS 0.8 % (0-6); HEMATOCRIT 38.3 % (35.0-50.0); HEMOGLOBIN 13.1 g/dL (12.0-18.0); LYMPHOCYTES 26.6 % (24-44); MCH 31.3 (27-36); MCHC 34.4 g/dl (30-36); MCV 91.2 fl (81-99); MONOCYTES 7.3 % (0-12); PLATELET COUNT 413 K/uL (140-440); RBC 4.19 M/ul (4.3-5.7); RDW 12.8 (10.5-15.0)
[2023-07-20 00:09] LABS: ACETAMINOPHEN 0 ug/mL (10-30); ALBUMIN 3.8 g/dL (3.4-5.0); ALBUMIN/GLOBULIN RATIO 0.93 (1.1-2.4); ALCOHOL, MEDICAL 171 ng/dL (<3); ALKALINE PHOSPHATASE 87 U/L (46-116); ALT (SGPT) 28 U/L (14-59); ANION GAP 17.7 (7-21); AST (SGOT) 20 U/L (15-37); BILIRUBIN, TOTAL 0.6 ng/dL (0.2-1.0); BUN/CREATININE RATIO 18.75 (6.0-28.6); CALCIUM 8.7 mg/dL (8.5-10.1); CARBON DIOXIDE 24 mmol/L (21-32); CHLORIDE 101 mmol/L (98-107); CREATININE, SERUM 0.64 mg/dL (0.55-1.02); GLOMERULAR FILTRATION RATE,EST 108 mL/min (>60); POTASSIUM 2.7 mmol/L (3.5-5.1); PROTEIN, TOTAL 7.9 g/dL (6.4-8.2); SALICYLATE 1.4 mg/dL (2.8-20.0); TSH, 3RD GENERATION 4.026 uIU/mL (0.358-3.740); UREA NITROGEN 12 mg/dL (7-18)
[2023-07-20] MEDS ORDERED: POTASSIUM CHLORIDE 10 MEQ/100 ML BAG IV SCH (01:00)
[2023-07-20] MEDS ORDERED: [UNRECOGNIZED DRUG - OTHER] IV SCH (01:00)
[2023-07-20] MEDS ORDERED: MULTIVITAMINS 10 ML,FOLIC ACID 1 MG,THIAMINE HCL 100 MG in SODIUM CHLORIDE 0.9% 1,000 ML IV ONE (01:00)
[2023-07-20] MEDS ORDERED: FOLIC ACID IV SCH (01:00)
[2023-07-20] MEDS ORDERED: POTASSIUM CHLORIDE IV SCH (01:00)
[2023-07-20] MEDS ORDERED: THIAMINE HCL IV SCH (01:00)
[2023-07-20] MEDS ORDERED: FOLIC ACID 1 MG/0.2 ML ML ONE (03:22)
[2023-07-20 04:51] LABS: BILIRUBIN, URINE NEGATIVE (negative); BLOOD/HGB, URINE NEGATIVE (Negative); KETONE, URINE TRACE (Negative); LEUK ESTERASE, URINE NEGATIVE (negative); NITRITE, URINE NEGATIVE (negative)
[2023-07-20 05:06] LABS: AMPHETAMINES, URINE POSITIVE (NEGATIVE); BARBITURATES, URINE NEGATIVE (NEGATIVE); BENZODIAZEPINE, URINE NEGATIVE (NEGATIVE); BUPRENORPHINE, URINE NEGATIVE (NEGATIVE); CANNABINOID, URINE NEGATIVE (NEGATIVE); COCAINE, URINE NEGATIVE (NEGATIVE); ECSTASY, URINE NEGATIVE (NEGATIVE); FENTANYL, URINE NEGATIVE (NEGATIVE); METHADONE, URINE NEGATIVE (NEGATIVE); OPIATES, URINE NEGATIVE (NEGATIVE); OXYCODONE, URINE NEGATIVE (NEGATIVE); PHENCYCLIDINE, URINE NEGATIVE (NEGATIVE)
[2023-07-20] MEDS ORDERED: ondansetron HCL 4 MG/2 ML VIAL IV ONE (06:00)
[2023-07-20 06:12] VITALS: BP 104/59
== END 2023-07-20 06:12 | disposition home or self-care (01) ==
LOC: ED 23:17
PROVIDERS: Internal Medicine
DX: F10.129 Alcohol abuse with intoxication, unspecified (principal); E87.6 Hypokalemia; E11.9 Type 2 diabetes mellitus without complications; Z88.5 Allergy status to narcotic agent; Z88.8 Allergy status to other drugs, medicaments and biological substances; Z79.899 Other long term (current) drug therapy; Z87.891 Personal history of nicotine dependence
CPT/HCPCS: 36415; 80053; 80307; 81003; 83735; 84443; 84703; 85025; 96365; 96366; 96367; 96375; 99284-25; G0480; J2405; J3411; J3480; J7030

== ENCOUNTER 2023-10-20 03:30 | Emergency (ER) | payer OTHER ==
[~2023-10-20] VITALS: Ht 157.5 cm; Wt 82.0 kg
[2023-10-20 03:43] LABS: HEMOGLOBIN 14.5 g/dL (12.0-18.0); MCH 31.6 (27-36)
[2023-10-20] MEDS ORDERED: VENLAFAXINE HCL 75 MG CAPCR PO ONE (03:45)
[2023-10-20] MEDS ORDERED: hydrOXYzine pamoate 25 MG CAP PO ONE (03:45)
[2023-10-20] MEDS ORDERED: AMITRIPTYLINE HCL 25 MG TAB PO ONE (03:45)
[2023-10-20 03:46] LABS: BASOPHILS 0.6 % (0-2); EOSINOPHILS 1.1 % (0-6); HEMATOCRIT 42.7 % (35.0-50.0); LYMPHOCYTES 35.9 % (24-44); MONOCYTES 5.8 % (0-12); NEUTROPHILS 56.6 % (39-80); PLATELET COUNT 320 K/uL (140-440); RBC 4.59 M/ul (4.3-5.7); RDW 13.7 (10.5-15.0)
[2023-10-20] MEDS ORDERED: HYDROXYZINE HCL25 MG PO (03:46)
[2023-10-20] MEDS ORDERED: AMITRIPTYLINE100 MG PO (03:46)
[2023-10-20] MEDS ORDERED: EFFEXOR XR150 MG PO (03:46)
[2023-10-20 03:54] LABS: BILIRUBIN, URINE NEGATIVE (negative); BLOOD/HGB, URINE NEGATIVE (Negative); KETONE, URINE NEGATIVE (Negative); LEUK ESTERASE, URINE NEGATIVE (negative); NITRITE, URINE NEGATIVE (negative)
[2023-10-20 04:04] LABS: ALBUMIN 3.6 g/dL (3.4-5.0); ANION GAP 11.8 (7-21); BILIRUBIN, TOTAL 0.6 ng/dL (0.2-1.0); BUN/CREATININE RATIO 10.75 (6.0-28.6); CALCIUM 8.8 mg/dL (8.5-10.1); CREATININE, SERUM 0.93 mg/dL (0.55-1.02); POTASSIUM 2.8 mmol/L (3.5-5.1); PROTEIN, TOTAL 7.2 g/dL (6.4-8.2); TSH, 3RD GENERATION 1.159 uIU/mL (0.358-3.740)
[2023-10-20] MEDS ORDERED: POTASSIUM CHLORIDE 10 MEQ TABCR PO ONE (04:15)
[2023-10-20] MEDS ORDERED: K-TAB ER20 MEQ PO (04:40)
[2023-10-20] MEDS ORDERED: ONDANSETRON 4 MG TAB ODT SL ONE (04:45)
[2023-10-20 04:57] VITALS: BP 122/83
[2023-10-20 05:06] LABS: AMPHETAMINES, URINE NEGATIVE (NEGATIVE); BARBITURATES, URINE NEGATIVE (NEGATIVE); BENZODIAZEPINE, URINE NEGATIVE (NEGATIVE); BUPRENORPHINE, URINE NEGATIVE (NEGATIVE); CANNABINOID, URINE NEGATIVE (NEGATIVE); COCAINE, URINE NEGATIVE (NEGATIVE); ECSTASY, URINE NEGATIVE (NEGATIVE); FENTANYL, URINE NEGATIVE (NEGATIVE); METHADONE, URINE NEGATIVE (NEGATIVE); OPIATES, URINE NEGATIVE (NEGATIVE); OXYCODONE, URINE NEGATIVE (NEGATIVE); PHENCYCLIDINE, URINE NEGATIVE (NEGATIVE)
[2023-10-20] MEDS ORDERED: KETOROLAC TROMETHAMINE 30 MG/ML VIAL IM ONE (05:15)
== END 2023-10-20 04:57 | disposition home or self-care (01) ==
LOC: ED 03:30
PROVIDERS: Internal Medicine
DX: F41.9 Anxiety disorder, unspecified (principal); E11.9 Type 2 diabetes mellitus without complications; F31.9 Bipolar disorder, unspecified; Z87.891 Personal history of nicotine dependence; Z88.5 Allergy status to narcotic agent; Z88.6 Allergy status to analgesic agent; Z79.899 Other long term (current) drug therapy
CPT/HCPCS: 36415; 80053; 80307; 81003; 83735; 84443; 85025; 99283; A9270; Q0177

== ENCOUNTER 2024-04-15 09:52 | Emergency (ER) | payer OTHER ==
[~2024-04-15] VITALS: Ht 157.5 cm; Wt 64.3 kg
[~2024-04-15 09:52] MED LIST changes: +K-TAB ER20 MEQ PO
[2024-04-15] MEDS ORDERED: VENLAFAXINE HC150 MG PO (10:15)
[2024-04-15] MEDS ORDERED: VENLAFAXINE112.5 MG PO (10:19)
[2024-04-15] MEDS ORDERED: LAMICTAL100 MG PO (10:19)
[2024-04-15] MEDS ORDERED: AMITRIPTYLINE100 MG PO (10:19)
[2024-04-15 10:29] VITALS: BP 128/92
== END 2024-04-15 10:30 | disposition home or self-care (01) ==
LOC: ED 09:52
DX: E11.9 Type 2 diabetes mellitus without complications (principal); Z76.0 Encounter for issue of repeat prescription; F31.9 Bipolar disorder, unspecified; Z88.6 Allergy status to analgesic agent; Z88.5 Allergy status to narcotic agent; Z79.899 Other long term (current) drug therapy; Z87.891 Personal history of nicotine dependence
CPT/HCPCS: 99281

== ENCOUNTER 2024-05-08 23:06 | Emergency (ER) | payer OTHER ==
[~2024-05-08] VITALS: Ht 157.5 cm; Wt 54.9 kg
[~2024-05-08 23:06] MED LIST changes: +VENLAFAXINE112.5 MG PO
[2024-05-08 23:29] LABS: BASOPHILS 0.3 % (0-2); HEMOGLOBIN 14.2 g/dL (12.0-18.0); LYMPHOCYTES 7.6 % (24-44); MCH 31.3 (27-36); MCHC 34.6 g/dl (30-36); MCV 90.7 fl (81-99); MONOCYTES 2.3 % (0-12); NEUTROPHILS 89.8 % (39-80); PLATELET COUNT 251 K/uL (140-440); RBC 4.52 M/ul (4.3-5.7); RDW 14.1 (10.5-15.0)
[2024-05-08 23:30] LABS: BILIRUBIN, URINE NEGATIVE (negative); BLOOD/HGB, URINE NEGATIVE (Negative); KETONE, URINE TRACE (Negative); LEUK ESTERASE, URINE NEGATIVE (negative); NITRITE, URINE NEGATIVE (negative); PH, URINE 7.5 (5-7)
[2024-05-08] MEDS ORDERED: LACTATED RINGER'S 1,000 ML IV ONE (23:30)
[2024-05-08] MEDS ORDERED: ondansetron HCL 4 MG/2 ML VIAL IV ONE (23:30)
[2024-05-08 23:42] LABS: ALBUMIN/GLOBULIN RATIO 0.87 (1.1-2.4); ANION GAP 9.2 (7-21); BILIRUBIN, TOTAL 0.5 ng/dL (0.2-1.0); BUN/CREATININE RATIO 13.63 (6.0-28.6); CALCIUM 8.9 mg/dL (8.5-10.1); CREATININE, SERUM 0.88 mg/dL (0.55-1.02); MAGNESIUM 1.9 mg/dL (1.8-2.4); POTASSIUM 3.2 mmol/L (3.5-5.1); PROTEIN, TOTAL 8.6 g/dL (6.4-8.2)
[2024-05-08 23:45] LABS: AMPHETAMINES, URINE POSITIVE (NEGATIVE); BARBITURATES, URINE NEGATIVE (NEGATIVE); BENZODIAZEPINE, URINE NEGATIVE (NEGATIVE); BUPRENORPHINE, URINE NEGATIVE (NEGATIVE); CANNABINOID, URINE NEGATIVE (NEGATIVE); COCAINE, URINE NEGATIVE (NEGATIVE); ECSTASY, URINE NEGATIVE (NEGATIVE); FENTANYL, URINE POSITIVE (NEGATIVE); METHADONE, URINE NEGATIVE (NEGATIVE); OPIATES, URINE NEGATIVE (NEGATIVE); OXYCODONE, URINE NEGATIVE (NEGATIVE); PHENCYCLIDINE, URINE NEGATIVE (NEGATIVE)
[2024-05-09] MEDS ORDERED: POTASSIUM CHLORIDE 10 MEQ TABCR PO ONE (00:45)
[2024-05-09] MEDS ORDERED: IBUPROFEN 600 MG TAB PO ONE (01:30)
[2024-05-09] MEDS ORDERED: ONDANSETRON 4 MG HOME.PACK SL ONE (01:30)
[2024-05-09 01:41] VITALS: BP 115/86
== END 2024-05-09 01:34 | disposition home or self-care (01) ==
LOC: ED 23:06
PROVIDERS: Internal Medicine
DX: S20.213A Contusion of bilateral front wall of thorax, initial encounter (principal); E86.0 Dehydration; E87.6 Hypokalemia; F11.10 Opioid abuse, uncomplicated; F15.10 Other stimulant abuse, uncomplicated; E11.9 Type 2 diabetes mellitus without complications; Z87.891 Personal history of nicotine dependence; Z88.6 Allergy status to analgesic agent; Z88.5 Allergy status to narcotic agent; Z79.899 Other long term (current) drug therapy; Z59.01 Sheltered homelessness; Y04.2XXA Assault by strike against or bumped into by another person, initial encounter
CPT/HCPCS: 36415; 71045; 80053; 80307; 81003; 83690; 83735; 84703; 85025; 96361; 96374; 99284-25; A9270; G0480; J2405; J7121

== ENCOUNTER 2024-05-18 18:05 | Emergency (ER) | payer OTHER ==
[~2024-05-18] VITALS: Ht 157.5 cm; Wt 67.1 kg
[2024-05-18] MEDS ORDERED: ondansetron HCL 4 MG/2 ML VIAL IV ONE (18:15)
[2024-05-18] MEDS ORDERED: SODIUM CHLORIDE 0.9% 1,000 ML IV ONE (18:15)
[2024-05-18 18:39] LABS: BASOPHILS 0.6 % (0-2); EOSINOPHILS 1.7 % (0-6); HEMATOCRIT 37.1 % (35.0-50.0); HEMOGLOBIN 13.4 g/dL (12.0-18.0); LYMPHOCYTES 37.2 % (24-44); MCH 31.8 (27-36); MCHC 36.1 g/dl (30-36); MCV 88.1 fl (81-99); MONOCYTES 5.2 % (0-12); NEUTROPHILS 55.3 % (39-80); PLATELET COUNT 363 K/uL (140-440); RBC 4.21 M/ul (4.3-5.7); RDW 13.7 (10.5-15.0)
[2024-05-18 18:54] LABS: ALBUMIN 3.6 g/dL (3.4-5.0); ALBUMIN/GLOBULIN RATIO 0.88 (1.1-2.4); ALKALINE PHOSPHATASE 85 U/L (46-116); ALT (SGPT) 14 U/L (14-59); ANION GAP 11.9 (7-21); AST (SGOT) 15 U/L (15-37); BILIRUBIN, TOTAL 0.3 ng/dL (0.2-1.0); BUN/CREATININE RATIO 16.85 (6.0-28.6); CALCIUM 8.8 mg/dL (8.5-10.1); CARBON DIOXIDE 32 mmol/L (21-32); CHLORIDE 99 mmol/L (98-107); CREATININE, SERUM 0.89 mg/dL (0.55-1.02); GLOMERULAR FILTRATION RATE,EST 79 mL/min (>60); POTASSIUM 2.9 mmol/L (3.5-5.1); PROTEIN, TOTAL 7.7 g/dL (6.4-8.2); UREA NITROGEN 15 mg/dL (7-18)
[2024-05-18 18:56] LABS: BILIRUBIN, URINE NEGATIVE (negative); BLOOD/HGB, URINE NEGATIVE (Negative); KETONE, URINE NEGATIVE (Negative); LEUK ESTERASE, URINE NEGATIVE (negative); NITRITE, URINE NEGATIVE (negative)
[2024-05-18 19:11] LABS: AMPHETAMINES, URINE POSITIVE (NEGATIVE); BARBITURATES, URINE NEGATIVE (NEGATIVE); BENZODIAZEPINE, URINE NEGATIVE (NEGATIVE); BUPRENORPHINE, URINE NEGATIVE (NEGATIVE); CANNABINOID, URINE NEGATIVE (NEGATIVE); COCAINE, URINE NEGATIVE (NEGATIVE); ECSTASY, URINE NEGATIVE (NEGATIVE); FENTANYL, URINE NEGATIVE (NEGATIVE); METHADONE, URINE NEGATIVE (NEGATIVE); OPIATES, URINE NEGATIVE (NEGATIVE); OXYCODONE, URINE NEGATIVE (NEGATIVE); PHENCYCLIDINE, URINE NEGATIVE (NEGATIVE)
[2024-05-18] MEDS ORDERED: ONDANSETRON 4 MG TAB ODT SL ONE (23:30)
[2024-05-18 23:33] VITALS: BP 103/56
== END 2024-05-18 23:33 | disposition home or self-care (01) ==
LOC: ED 18:05
PROVIDERS: Emergency Medicine
DX: F10.929 Alcohol use, unspecified with intoxication, unspecified (principal); F15.90 Other stimulant use, unspecified, uncomplicated; Y90.7 Blood alcohol level of 200-239 mg/100 ml; E11.9 Type 2 diabetes mellitus without complications; Z59.00 Homelessness unspecified; Z88.6 Allergy status to analgesic agent; Z88.5 Allergy status to narcotic agent; Z79.899 Other long term (current) drug therapy
CPT/HCPCS: 36415; 80053; 80307; 81003; 84484; 85025; 96374; 99284-25; A9270; G0480; J2405; J7030

== ENCOUNTER 2024-06-02 05:43 | Emergency (ER) | payer OTHER ==
[~2024-06-02] VITALS: Ht 157.5 cm; Wt 59.9 kg
[2024-06-02] MEDS ORDERED: IBU600 MG PO (06:36)
[2024-06-02] MEDS ORDERED: AMITRIPTYLINE100 MG PO (06:36)
[2024-06-02] MEDS ORDERED: LAMOTRIGINE100 MG PO (06:36)
[2024-06-02] MEDS ORDERED: VENLAFAXINE HC150 M1 PO (06:36)
[2024-06-02 06:40] VITALS: BP 129/76
== END 2024-06-02 06:40 | disposition home or self-care (01) ==
LOC: ED 05:43
DX: M20.12 Hallux valgus (acquired), left foot (principal); M20.11 Hallux valgus (acquired), right foot; M21.612 Bunion of left foot; M21.611 Bunion of right foot; S06.0X9A Concussion with loss of consciousness of unspecified duration, initial encounter; E11.9 Type 2 diabetes mellitus without complications; Z76.0 Encounter for issue of repeat prescription; Z87.891 Personal history of nicotine dependence; Z88.6 Allergy status to analgesic agent; Z88.5 Allergy status to narcotic agent; Z79.899 Other long term (current) drug therapy; Y04.2XXA Assault by strike against or bumped into by another person, initial encounter
CPT/HCPCS: 99283

== ENCOUNTER 2025-02-03 03:40 | Emergency (ER) | payer OTHER ==
[~2025-02-03] VITALS: Ht 157.5 cm; Wt 66.0 kg
[~2025-02-03 03:40] MED LIST changes: +VENLAFAXINE HC150 M1 PO
[2025-02-03] MEDS ORDERED: LAMICTAL100 MG PO (03:59)
[2025-02-03] MEDS ORDERED: IBUPROFEN 800 MG TAB PO ONE (04:00)
[2025-02-03 04:22] VITALS: BP 138/83
== END 2025-02-03 04:22 | disposition home or self-care (01) ==
LOC: ED 03:40
DX: Z76.0 Encounter for issue of repeat prescription (principal); F31.9 Bipolar disorder, unspecified; E11.9 Type 2 diabetes mellitus without complications; Z87.891 Personal history of nicotine dependence; Z88.6 Allergy status to analgesic agent; Z88.5 Allergy status to narcotic agent; Z79.899 Other long term (current) drug therapy
CPT/HCPCS: 99283; A9270